=== PATIENT | female | born 1955 | race Caucasian/White ===

== ENCOUNTER 2017-09-24 10:15 | Inpatient (IN) | payer MEDICARE ==
[2017-09-24] VITALS (36 sets, daily range): BP systolic 77–123; BP diastolic 34–93; BMI 20.5
[~2017-09-24] VITALS: Ht 165.1 cm; Wt 81.4 kg
[2017-09-24 11:07] LABS: BASOPHILS 0.1 % (0-2); EOSINOPHILS 0.1 % (0-7); HEMATOCRIT 41.2 % (36.0-48.0); HEMOGLOBIN 13.6 g/dL (12-16); IMMATURE GRANULOCYTES 0.6 % (0-5); LYMPHOCYTES 23.1 % (15-50); MCH 28.3 pg (26.0-34.0); MCV 85.8 fL (80.0-100.0); MONOCYTES 7.1 % (2-11); PLATELET COUNT 95 10x3/uL (130-400); RDW 15.4 % (11.5-14.5); WBC 12.2 10x3/uL (4.8-10.8)
[2017-09-24 11:19] LABS: APPEARANCE CLOUDY (CLEAR); BILIRUBIN NEGATIVE (NEGATIVE); COLOR DK YELLOW (YELLOW); GLUCOSE NEGATIVE (NEGATIVE); KETONE NEGATIVE (NEGATIVE); NITRITE NEGATIVE (NEGATIVE); PROTEIN NEGATIVE (NEGATIVE)
[2017-09-24 11:22] LABS: INR 1.94 (0.85-1.17); PROTIME 22.2 SECONDS (11.6-15.0)
[2017-09-24 11:22] LABS: BACTERIA MANY /hpf (NONE SEEN); MUCUS <1+ /lpf (NONE SEEN); RED CELLS - URINE 0-5 /hpf (0-5)
[2017-09-24 11:25] LABS: PLATELET ESTIMATE DECREASED
[2017-09-24 11:27] LABS: UDS - AMPHET NEGATIVE QUAL (NEGATIVE); UDS - BARB NEGATIVE QUAL (NEGATIVE); UDS - BENZO NEGATIVE QUAL (NEGATIVE); UDS - COCAINE NEGATIVE QUAL (NEGATIVE); UDS - OPIATE NEGATIVE QUAL (NEGATIVE); UDS - PCP NEGATIVE QUAL (NEGATIVE); UDS - THC NEGATIVE QUAL (NEGATIVE)
[2017-09-24 11:52] LABS: ALBUMIN 2.4 g/dL (3.4-5.0); ANION GAP 19.8 mmol/L (8-16); CALCIUM 7.8 mg/dL (8.5-10.1); CARBON DIOXIDE 19.8 mmol/L (21.0-32.0); CREATININE - SERUM 1.8 mg/dL (0.6-1.3); POTASSIUM - SERUM 4.6 mmol/L (3.5-5.1); PROTEIN - SERUM 6.5 g/dL (6.4-8.2)
[2017-09-24 12:13] LABS: DIGOXIN 0.15 ng/mL (0.90-2.00)
[2017-09-24 12:21] LABS: TROPONIN-I 0.212 ng/mL (0.000-0.060)
--- NOTE | 2017-09-24 14:45 | NUR ---
REC'D PT VIA STRETCHER FROM OR, PT UNABLE TO ANSWER QUESTIONS OR PROVIDE HISTORY ON PT. NO BELONGINGS WITH PT, MARIYA GORMAN FROM ER REPORTS THAT PTS BELONGINGS WERE SENT HOME WITH PTS . CAMILO CATHETER INTACT, URINE RETURN.
[2017-09-24 16:23] LABS: AMYLASE - SERUM 11 U/L (25-115); LIPASE 69 U/L (73-393)
--- NOTE | 2017-09-24 17:02 | NUR ---
1500 COMP[LETE assesment is done see flow sheet for findings.. pt buttocks and perineal area are totally excoriated and there is a skin tear area on the right buttock .. meplex dressing applied at this time.. and there is excoriation with blackened eschar like areas on backside of right thigh.. pt is not responsive to stimuli at this time she moans but not to specific stimuli.. there is a piv in bilateral hands and ns with levoquin infusing into the right with levophed infusing into the left for bp.. piv on right appears to be infiltrated and dani FABIAN CALLED FOR LINE PLACEMENT.. ALL FLUID MOVED TO LEFT FOR NOW.. PAT ON MONITOR RATE OF 200+ TEMP IS 95 PER RECTUM.. JARRED DAVISER PLACED ON PT FOR TEMP CONTROL... 1515 DR WALKER IN TO SEE PT AND DR GARCIA CALLED RE HR.. ORDERS FOR DIG IVP RECIEVED... 1520 DANI FABIAN IN ROOM AND ATTEMPTING TO PLACE PICC.. DIG GIVEN INTO LEFT PIV 0.[address] FROST IN TO SEE PT AND UPDATE IS GIVEN.. DANI UNABLE TO PLACE PICC .. SHE PLACE BILATERAL PIV 20 GA IN THE PTS UPPER ARMS.. [address] FROST D5NS AT 125CC/HR
--- NOTE | 2017-09-24 17:46 | NUR ---
1715 HEART RATE REMAINS UNCHANGED DIG .[address] GARCIA.. 1745 DIG GIVEN PT REMAINS WITHOUT CHANGES.. TEMP IS ELEVATED AT THIS TIME TO 99 RECTALLY WARMER TURNED OFF AT THIS TIIME.. REMAINS WITHOUT APPROPRIATE RESPONSES,,,
--- NOTE | 2017-09-24 19:15 | NUR ---
REPORT RECIEVED, SHIFT ASSESSMENT COMPLETE, PT IS LETHARGIC AT THIS TIME, GARBLED SPEECH NOTED, ON 2L NC WITH 95% O2 SAT. LUNGS CLEAR IN B/L UPPER LOBES, DIMINISHED IN B/L LOWER LOBES, HR-IRREGULAR, AFIB ON MONITOR, PATENT LEFT HAND PIV, PATENT LEFT UPPER ARM PIC AND PATENT RIGHT A/C PIV...SEE IV FLOW SHEET, ABDOMEN IS SOFT AND ROUND WITH HYPO BS, PATENT F/C WITH AUGUST UOP, ALL PPP, VSS, WILL CON'T TO MONITOR
--- NOTE | 2017-09-24 20:30 | NUR ---
L UPPER ARM PIV INFULTRATED. D.C'D CATH INTACT. IV RESTART BY TOM GORMAN X1 APPTEMPT FLUSHES WITHOUT DIFFICULTY. VSS WILL CONTINUE TO MONITOR
--- NOTE | 2017-09-24 21:14 | NUR ---
NO FAMILY AT THIS TIME. HR 121 UNCONTROLLED A FIB NO FURTHER NEW CHANGES. WILL CONTINUE TO MONITOR
--- NOTE | 2017-09-24 22:34 | NUR ---
UPDATE CALLED TO DR. HUTSON, NO NEW ORDERS AT THIS TIME,
--- NOTE | 2017-09-24 23:00 | NUR ---
REASSESSMENT COMPLETE, NO CHANGES NOTED, PT RESTING AT THIS TIME, WILL CON'T TO MONITOR
[2017-09-25] VITALS (73 sets, daily range): BP systolic 60–127; BP diastolic 37–98; Ht 165.1 cm; Wt 81.4 kg
--- NOTE | 2017-09-25 01:30 | NUR ---
COMPLETE BATH AND LINEN CHANGE, PT TOLERATED WELL
--- NOTE | 2017-09-25 03:10 | NUR ---
LAB IN ROOM FOR MORNING LAB DRAW
[2017-09-25 04:48] LABS: BASOPHILS 0.1 % (0-2); EOSINOPHILS 0.2 % (0-7); HEMATOCRIT 39.2 % (36.0-48.0); HEMOGLOBIN 12.6 g/dL (12-16); IMMATURE GRANULOCYTES 0.7 % (0-5); MCH 28.3 pg (26.0-34.0); MCHC 32.1 g/dL (31.0-37.0); MONOCYTES 7.4 % (2-11); NEUTROPHILS 74.6 % (40-80); PLATELET COUNT 87 10x3/uL (130-400); RBC 4.46 10x6/uL (4.00-5.40); RDW 15.8 % (11.5-14.5); WBC 9.7 10x3/uL (4.8-10.8)
[2017-09-25 04:56] LABS: MCV 87.9 fL (80.0-100.0)
[2017-09-25 05:00] LABS: INR 1.91 (0.85-1.17); PROTIME 21.9 SECONDS (11.6-15.0)
--- NOTE | 2017-09-25 05:00 | NUR ---
REPOSITIONED FOR COMFORT, NO VISITORS AT THIS TIME
[2017-09-25 07:14] LABS: ALBUMIN 2.2 g/dL (3.4-5.0); BILIRUBIN - TOTAL 2.46 mg/dL (0.2-1.3); CALCIUM 7.9 mg/dL (8.5-10.1); CARBON DIOXIDE 17.5 mmol/L (21.0-32.0); PROTEIN - SERUM 6.1 g/dL (6.4-8.2); T4 THYROXIN - FREE 1.14 ng/dL (0.76-1.46); THYROID STIMULATING HORMONE 4.19 uIU/mL (0.36-3.74); VANCOMYCIN - RANDOM 15.1 ug/mL (10.0-20.0)
[2017-09-25 07:15] LABS: CREATININE - SERUM 1.3 mg/dL (0.6-1.3); POTASSIUM - SERUM 3.5 mmol/L (3.5-5.1)
--- NOTE | 2017-09-25 08:54 | NUR ---
AM MEDS GIVEN WITH NO COMPLICATIONS. WAINTING ON PHARMACY TO BRING ANOTHER BAG OF VIBRAMYCIN. 1ST BAG WOUND NOT MIX PROPERLY AND STARTED LEAKING. PT RESTING COMFORTABLY.
--- NOTE | 2017-09-25 10:34 | NUR ---
SPOKE WITH DR. MANDEL ABOUT CONTINUING LEVOPHED. HE SAID TO [place] IT DOWN AND DISCONTINUE. CURRENTLY AT 2MCG/MIN. SBP 112. WILL CONTINUE TO MONITOR.
--- NOTE | 2017-09-25 11:21 | NUR ---
Patient lethargic. No family present. Rec'd call from Belen with Adult Protective Services ([phone]). Belen reports she has been following patient for quite some time and has attempted to obtain custody several times but was unsuccessful. She reports patient lives with [facility], her significant other of 12-15 years. She states she has spoke to [facility] since patient was hospitalized and he is agreeable to alf placement at discharge at this moment, unsure if patient will agree. CM will follow & assist as needed.
--- NOTE | 2017-09-25 12:34 | NUR ---
DIGOXIN 0.5ML GIVEN PER ORDERS. HR 130. PT TOLERATED WELL. WILL CONTINUE TO MONITOR.
--- NOTE | 2017-09-25 13:04 | NUR ---
LEVOPHED DISCONTINUED. BP IN THE 100S. WILL CONTINUE TO MONITOR.
--- NOTE | 2017-09-25 19:30 | NUR ---
REPORT RECIEVED, SHIFT ASSESSMENT COMPLETE, PT IS LETHARGIC/CONFUSED AT THIS TIME, ON 4L NC WITH 99% O2 SAT. CRACKLES HEARD IN B/L UPPER LOBES, DIMINISHED IN B/L LOWER LOBES, HR-IRREGULAR, AFIB ON MONITOR, PATENT RIGHT/LEFT HAND PIV...SEE IV FLOW SHEET..ABDOMEN IS FLAT WITH HYPO BS, PATENT F/C WITH CONCENTRATED UOP, EDEMA NOTED IN ALL EXTREMETIES, ALL PPP, VSS, WILL CON'T TO MONITOR
--- NOTE | 2017-09-25 23:15 | NUR ---
REASSESSMENT COMPLETE, NO CHANGES NOTED, PT RESTING COMFORTABLY, VSS, CALL LIGHT IN REACH
[2017-09-26] VITALS (14 sets, daily range): BP systolic 85–164; BP diastolic 38–80
--- NOTE | 2017-09-26 03:25 | NUR ---
RAD IN ROOM FOR DAILY CXR
[2017-09-26 04:24] LABS: BASOPHILS 0 % (0-2); EOSINOPHILS 0.4 % (0-7); HEMATOCRIT 36.9 % (36.0-48.0); HEMOGLOBIN 11.6 g/dL (12-16); IMMATURE GRANULOCYTES 0.4 % (0-5); LYMPHOCYTES 18.8 % (15-50); MCHC 31.4 g/dL (31.0-37.0); MCV 88.9 fL (80.0-100.0); MEAN PLATELET VOLUME 11.7 fL (7.4-10.4); MONOCYTES 11.6 % (2-11); NEUTROPHILS 68.8 % (40-80); PLATELET COUNT 79 10x3/uL (130-400); RBC 4.15 10x6/uL (4.00-5.40); RDW 15.8 % (11.5-14.5); WBC 7.3 10x3/uL (4.8-10.8)
[2017-09-26 04:35] LABS: PROTIME 17.8 SECONDS (11.6-15.0)
[2017-09-26 04:39] LABS: INR 1.48 (0.85-1.17)
[2017-09-26 05:37] LABS: BILIRUBIN - TOTAL 1.9 mg/dL (0.2-1.3); CALCIUM 7.9 mg/dL (8.5-10.1); CREATININE - SERUM 1.2 mg/dL (0.6-1.3); MAGNESIUM - SERUM 2.1 mg/dL (1.8-2.4); PHOSPHOROUS 1.7 mg/dL (2.5-4.9); PROTEIN - SERUM 5.3 g/dL (6.4-8.2)
[2017-09-26 05:39] LABS: CARBON DIOXIDE 26.8 mmol/L (21.0-32.0)
[2017-09-26 05:40] LABS: POTASSIUM - SERUM 2.8 mmol/L (3.5-5.1); TROPONIN-I 0.692 ng/mL (0.000-0.060)
--- NOTE | 2017-09-26 07:40 | NUR ---
PT AWAKE AND ASKING FOR WATER. PT HAS POTASIUM INFUSING ON PIV ON RIGHT BREAST. SHE'S CONFUSED TO SITUATION. HAS SWOLLOW EVAL SCHEDULED. BS SOUNDS ARE ACTIVE X 4 QUADRANTS. ABDOMEN IS SOFT AND NONTENDER. HR IN UNCONTROLLED A-FIB 130S. PUPILS 3MM EQUAL ROUND AND REACTIVE. SHIFT ASSESSMENT COMPLETED. PIV ON RIGHT AND LEFT HAND. GENERALIZED SWELLING ON ARMS AND LEGS. CAMILO IN PLACE WITH AUGUST URINE. REPOSITIONED ON RIGHT SIDE. NO OTHER NEEDS AT THIS TIME. BED LOW, CALL LIGHT IN REACH, BED ALARM ON.
--- NOTE | 2017-09-26 09:03 | NUR ---
NOTIFIED TAUTH OF BP BEING IN 80S AND HR IN UNCONTROLLED A-FIB. ORDER ONE TIME DOSE OF DIGOXIN 0.5 MG IV. PATIENT'S IN ROOM. EXPLAINED THAT PT IS NPO UNTIL SWALLOW EVAL IS PERFORMED.
--- NOTE | 2017-09-26 10:33 | NUR ---
SWALLOW EVAL BEING PERFORMED AT THIS TIME. PT PULLED UP IN BED.
--- NOTE | 2017-09-26 10:50 | NUR ---
HOB RAISED UP TO 60 DEGREES. PT DRINKING WATER. ABLE TO HAVE THIN LIQUIDS PER SPEECH THERAPY.
--- NOTE | 2017-09-26 11:13 | NUR ---
PT DRANK TO MUCH WATER TOO FAST. VOMITED. POSSIBLY ASPIRATED SOME FLUIDS. PT HAS POOR COUGH. SITTING UP AT THIS TIME AT 80 DEGREES. COMPLETE BED LINEN CHANGE PROVIDE.
--- NOTE | 2017-09-26 11:30 | NUR ---
D5 1/2 NS WITH BICARB DISCONTINUED. D5W INITATED AT 125ML/HR. PT SITTING UP IN BED. HAS TRANSFER ORDERS.
--- NOTE | 2017-09-26 11:41 | NUR ---
PT WILL BE TRANSFERRED TO ROOM 2117. REPORT CALLED TO NURSE.
--- NOTE | 2017-09-26 12:16 | NUR ---
PATIENT TRANSFERRED TO ROOM 2117 BY BED. STAFF NOTIFIED OF PT ARRIVAL.
--- NOTE | 2017-09-26 12:22 | NUR ---
RECEIVED PT FROM ICU IN STABLE CONDITION DROWSY ORIENTED X [address] RESP UNLABORED TELEMETRY APPLIED CAF RATE 74 NAD NOTED
--- NOTE | 2017-09-26 14:00 | NUR ---
OPEN AREA 3.5 X 8 CM TO RT BUTTOCK WOUND BED RED WITH DARK EDGES BUTTOCKS EXSCORIATED INCONTINENT CARE PROVIDED FOR BOWEL INCONTINENCE BUTT PAST APPLIED PT TOLERATED WELL
--- NOTE | 2017-09-26 22:58 | NUR ---
NURSE ROUNDS 20:00 - PT LYING IN BED, AWAKE, ALERT, MILDLY CONFUSED TO PLACE, TIME, AND SITUATION. PT DENIES ANY NEEDS. CONTINUE TO MONITOR CLOSELY.
[2017-09-27 00:50] VITALS: BP 92/47
[2017-09-27 05:12] VITALS: BP 80/51
--- NOTE | 2017-09-27 05:32 | NUR ---
PT AWAKE, ALERT, DENIES ANY NEEDS. 1ST STEP OVERLAY PLACED EARLY IN THE SHIFT. CONTINUE TO MONITOR CLOSELY. BED LOW, CALL LIGHT IN REACH, SIDE RAILS X 2, HOB 30 DEGREES.
[2017-09-27 06:08] LABS: CALCIUM 7.6 mg/dL (8.5-10.1); CHLORIDE - SERUM 106 mmol/L (98-107); MAGNESIUM - SERUM 1.7 mg/dL (1.8-2.4); POTASSIUM - SERUM 3.7 mmol/L (3.5-5.1); SODIUM 142 mmol/L (136-145)
[2017-09-27 06:10] LABS: CALC OSMOLALITY 283 mosm/kg (275-300); CREATININE - SERUM 0.6 mg/dL (0.6-1.3); GLUCOSE 66 mg/dL (74-106); UREA NITROGEN 21 mg/dL (7-18); eGFR NON AFRICAN AMERICAN > 90 mL/min (90-120)
[2017-09-27 06:39] LABS: BASOPHILS 0.1 % (0-2); EOSINOPHILS 2.5 % (0-7); HEMOGLOBIN 12.7 g/dL (12-16); IMMATURE GRANULOCYTES 0.5 % (0-5); LYMPHOCYTES 26.3 % (15-50); MCH 27.6 pg (26.0-34.0); MCV 89.1 fL (80.0-100.0); NEUTROPHILS 60.6 % (40-80); PLATELET COUNT 73 10x3/uL (130-400)
[2017-09-27 06:44] LABS: WBC 9.4 10x3/uL (4.8-10.8)
[2017-09-27 08:00] VITALS: BP 72/46
[2017-09-27] MEDS ORDERED: LANOXIN125 MCG PO (10:43)
[2017-09-27] MEDS ORDERED: ALDACTONE50 MG PO (10:43)
[2017-09-27 11:48] VITALS: BP 92/44
[2017-09-27] MEDS ORDERED: TRINTELLIX20 MG PO (12:50)
[2017-09-27] MEDS ORDERED: TRILEPTAL600 MG PO (12:54)
[2017-09-27] MEDS ORDERED: OXYBUTYNIN CHLOR5 MG PO (12:55)
[2017-09-27] MEDS ORDERED: COREG25 MG PO (12:56)
--- NOTE | 2017-09-27 20:03 | NUR ---
PT LYING IN BED, AWAKE, ALERT, JUST COMPLETED AN UPDRAFT TX. PT DENIES ANY NEEDS AT THIS TIME. WILL CONTINUE TO MONITOR CLOSELY AND FREQUENTLY. BED LOW, CALL LIGHT IN REACH, SIDE RAILS X 2, HOB 35 DEGREES.
[2017-09-27 21:40] VITALS: BP 102/43
[2017-09-28] VITALS: BP 100/47
--- NOTE | 2017-09-28 00:41 | NUR ---
PT LYING IN BED, AWAKE, ALERT, BED BATH GIVEN, LINENS CHANGED, GOWN CHANGED R/T BOWEL INCONTINENCE. PT DENIES ANY NEEDS AT THIS TIME. CONTINUE TO MONITOR PT CLOSELY. BED LOW, CALL LIGHT IN REACH, SIDE RAILS X 2, HOB 30 DEGREES, 1ST STEP OVERLAY INFLATED.
[2017-09-28 04:16] VITALS: BP 92/44
[2017-09-28 05:15] LABS: BASOPHILS 0 % (0-2); EOSINOPHILS 2.1 % (0-7); HEMATOCRIT 39.3 % (36.0-48.0); HEMOGLOBIN 12.4 g/dL (12-16); IMMATURE GRANULOCYTES 0.3 % (0-5); MCH 27.7 pg (26.0-34.0); MCHC 31.6 g/dL (31.0-37.0); MCV 87.7 fL (80.0-100.0); MEAN PLATELET VOLUME 11.7 fL (7.4-10.4); MONOCYTES 8.3 % (2-11); NEUTROPHILS 67.3 % (40-80); RBC 4.48 10x6/uL (4.00-5.40); RDW 15.9 % (11.5-14.5); WBC 9.5 10x3/uL (4.8-10.8)
[2017-09-28 05:20] LABS: PLATELET COUNT 102 10x3/uL (130-400)
[2017-09-28 05:52] LABS: CALC OSMOLALITY 282 mosm/kg (275-300); CALCIUM 7.9 mg/dL (8.5-10.1); CARBON DIOXIDE 27.8 mmol/L (21.0-32.0); CHLORIDE - SERUM 106 mmol/L (98-107); GLUCOSE 83 mg/dL (74-106); MAGNESIUM - SERUM 1.7 mg/dL (1.8-2.4); POTASSIUM - SERUM 3.3 mmol/L (3.5-5.1); SODIUM 141 mmol/L (136-145); UREA NITROGEN 20 mg/dL (7-18); eGFR NON AFRICAN AMERICAN 77 mL/min (90-120)
[2017-09-28 05:53] LABS: CREATININE - SERUM 0.8 mg/dL (0.6-1.3)
--- NOTE | 2017-09-28 07:51 | NUR ---
AM ROUNDS COMPLETED. INTRODUCED MYSELF TO PT PRIMARY RN FOR TODAYS SHIFT. SHIFT ASSESSMENT COMPLETED. PT RESTING QUIETLY IN BED AND DENIES ANY CURRENT NEEDS. CL IN REACH, BED IN LOWEST, SIDE RAILS X2 AND WILL CPOC.
[2017-09-28 08:00] VITALS: BP 93/45
--- NOTE | 2017-09-28 08:00 | NUR ---
D/C PTS L.HAND PIV WITH CATH TIP FULLY INTACT IT IS INFILTRATED.
--- NOTE | 2017-09-28 10:00 | NUR ---
BOTH MAG AND POTASSIUM REPLACED PER ELECTROLYTE PROTOCOL. WILL CONTINUE TO FOLLOW LABS.
--- NOTE | 2017-09-28 11:27 | NUR ---
PT SITTING UP IN BED WITH SPOUSE AT BEDSIDE. APPARENTLY PT HAS BEEN CONFUSED AND LETHARGIC HOWEVER SHES BEEN WITH IT ALL DAY FOR ME AND ANSWERED ALL QUESTIONS PT STATES SHE NORMALLY IS WALKING AT HOME FINE, SO PHYSICAL THERAPY HAS BEEN ORDERED AND PT IS EAGER TO GET MOVING. NO FURTHER NEEDS AT THIS TIME. WILL CPOC.
[2017-09-28 12:00] VITALS: BP 91/44
--- NOTE | 2017-09-28 13:43 | NUR ---
INITIATED PTS IVPB INFUSING VIA R.HAND PIV WITH DRSG CDI AND SWAB CAPS IN USE THIS ANBX IS THE EXTENDED INTERVAL AND WILL BE INFUSED OVER 4 HOURS. PT SITTING UP IN BED WITH AT BEDSIDE. DENIES ANY CURRENT PAIN OR NEEDS. CL IN REACH, BED IN LOWEST, SIDE RAILS X2. WILL CPOC.
[2017-09-28 16:00] VITALS: BP 87/36
--- NOTE | 2017-09-28 17:05 | NUR ---
BRICK UNLOADER TENDER REPORTED PTS BP LOW IN THE 80S. I MANUALLY RECHECKED AND GOT 92/58 WILL DOCUMENT AND JUST CONTINUE TO MONITER. PT ASYMPTOMATIC AND SITTING UP IN BED RESTING ABOUT TO EAT DINNER. PT DENIES ANY CURRENT PAIN OR FURTHER NEEDS. CL IN REACH. WILL CPOC.
--- NOTE | 2017-09-28 19:00 | NUR ---
RECEIVED REPORT AND ASSUMED PT CARE FROM DAY SHIFT NURSE @ THIS TIME.
--- NOTE | 2017-09-28 20:31 | NUR ---
PT SITTING UP IN BED, 1ST STEP OVERLAY ON BED. INITIAL ASSESSMENT COMPLETED, VSS, AFEBRILE. RIGHT CHEST PERIPHERAL IV WITH NS @ KVO. SITE IS PATENT AND CDI. CAMILO TO BSD, DRAINS ADEQ AMOUNT AUGUST URINE. IN REPORT WAS TOLD PT IS CONFUSED. HOWEVER, ON THIS ASSESSMENT PT IS A/O X4. DENIES ANY C/O PAIN. CAF ON TELE, HR 70'S. NO OTHER NEEDS VOICED. CALL LIGHT WITHIN REACH. WILL CONT TO MONITOR.
[2017-09-28 21:15] VITALS: BP 100/42
--- NOTE | 2017-09-29 | NUR ---
PT RESTING WELL, NO CHANGES NOTED. ASSESSMENTS UNCHANGED. CALL LIGHT WITHIN REACH. WILL MONITOR.
[2017-09-29 00:50] VITALS: BP 104/50
[2017-09-29 05:16] VITALS: BP 102/65
[2017-09-29 05:22] LABS: BASOPHILS 0 % (0-2); EOSINOPHILS 2.4 % (0-7); HEMATOCRIT 37.6 % (36.0-48.0); IMMATURE GRANULOCYTES 0.7 % (0-5); LYMPHOCYTES 29.8 % (15-50); MCH 27.8 pg (26.0-34.0); MCHC 31.9 g/dL (31.0-37.0); MEAN PLATELET VOLUME 11.7 fL (7.4-10.4); MONOCYTES 10.2 % (2-11); NEUTROPHILS 56.9 % (40-80); PLATELET COUNT 106 10x3/uL (130-400); RBC 4.32 10x6/uL (4.00-5.40); RDW 16.1 % (11.5-14.5); WBC 8.9 10x3/uL (4.8-10.8)
[2017-09-29 05:38] LABS: CALC OSMOLALITY 277 mosm/kg (275-300); CALCIUM 7.8 mg/dL (8.5-10.1); CARBON DIOXIDE 26.4 mmol/L (21.0-32.0); CHLORIDE - SERUM 106 mmol/L (98-107); CREATININE - SERUM 0.7 mg/dL (0.6-1.3); GLUCOSE 102 mg/dL (74-106); MAGNESIUM - SERUM 1.7 mg/dL (1.8-2.4); POTASSIUM - SERUM 3.5 mmol/L (3.5-5.1); SODIUM 139 mmol/L (136-145); eGFR NON AFRICAN AMERICAN 90 mL/min (90-120)
[2017-09-29 05:43] LABS: UREA NITROGEN 13 mg/dL (7-18)
--- NOTE | 2017-09-29 07:32 | NUR ---
AM ROUNDS COMPLETED. INTRODUCED MYSELF TO PT PRIMARY RN FOR TODAYS SHIFT. PT REMEMBERS ME FROM YESTERDAY. PT STATES THEY SLEPT ALRIGHT AND DENIES ANY CURRENT PAIN OR NEEDS. WILL CHECK CHART AND CPOC.
[2017-09-29 08:50] VITALS: BP 109/49
--- NOTE | 2017-09-29 10:35 | NUR ---
THERAPY ASSISTED PT INTO HER BEDSIDE CHAIR. PT STATES SHE FEELS GOOD SITTING UP IN THE CHAIR. ELEVATED HER ARMS ON PILLOWS TO REDUCE SWELLING ALONG WITH HER FEET. BILAT LEGS DRY-APPLIED LOTION. PTS L.EYE IS VERY RED BUT SHE DENIES PAIN OR IRRITATION AND STATES THAT WHEN SHE REC'D HER BREATHING TX IT BLEW IN HER EYE, WILL DISCUSS WITH PRIMARY AND MAKE SURE THEY ARE AWARE AND CTM IT. PT DENIES ANY CURRENT PAIN OR NEEDS AT THIS TIME. CL IN REACH, WILL CPOC.
--- NOTE | 2017-09-29 12:19 | NUR ---
PT WANTING TO GET BACK INTO BED. LINEN CHANGE PROVIDED AND PT ASSISTED BACK INTO BED. PT SITTING UP AND IS READY TO EAT LUNCH. NO FURTHER NEEDS AT THIS TIME. WILL CPOC.
[2017-09-29 12:20] VITALS: BP 109/60
--- NOTE | 2017-09-29 14:30 | NUR ---
MAGNESIUM REPLACED PER ELECTROLYTE PROTOCOL. PT SITTING UP IN BED RESTING QUIETLY AND DENIES ANY CURRENT PAIN OR NEEDS. REMOVED OXYGEN I KEEP FINDING IT IN PTS L.EYE AND POKING IT IRRITATING IT. PTS PULSE OX ON RA IS 99% WILL CTM FOR NEED ON OXYGEN OR NOT.
[2017-09-29 16:39] VITALS: BP 110/47
[2017-09-29 20:00] VITALS: BP 102/42
[2017-09-30] VITALS: BP 90/57
[2017-09-30 04:00] VITALS: BP 95/44
[2017-09-30 06:52] LABS: CALC OSMOLALITY 285 mosm/kg (275-300); CALCIUM 8.1 mg/dL (8.5-10.1); CARBON DIOXIDE 26.1 mmol/L (21.0-32.0); CHLORIDE - SERUM 108 mmol/L (98-107); CREATININE - SERUM 0.7 mg/dL (0.6-1.3); GLUCOSE 93 mg/dL (74-106); MAGNESIUM - SERUM 1.9 mg/dL (1.8-2.4); POTASSIUM - SERUM 3.5 mmol/L (3.5-5.1); SODIUM 144 mmol/L (136-145); UREA NITROGEN 10 mg/dL (7-18); eGFR NON AFRICAN AMERICAN 90 mL/min (90-120)
[2017-09-30 07:09] LABS: BASOPHILS 0.1 % (0-2); EOSINOPHILS 2.3 % (0-7); HEMATOCRIT 40.6 % (36.0-48.0); HEMOGLOBIN 12.8 g/dL (12-16); IMMATURE GRANULOCYTES 0.3 % (0-5); LYMPHOCYTES 18.9 % (15-50); MCH 27.8 pg (26.0-34.0); MCHC 31.5 g/dL (31.0-37.0); MCV 88.3 fL (80.0-100.0); MEAN PLATELET VOLUME 11.7 fL (7.4-10.4); MONOCYTES 9.6 % (2-11); NEUTROPHILS 68.8 % (40-80); PLATELET COUNT 119 10x3/uL (130-400); RDW 16.5 % (11.5-14.5)
[2017-09-30 07:15] LABS: WBC 12.8 10x3/uL (4.8-10.8)
--- NOTE | 2017-09-30 07:30 | NUR ---
RECEIVED PT IN BED EYES CLOSED RESP UNLABORED NAD NOTED
[2017-09-30 08:27] VITALS: BP 97/38
--- NOTE | 2017-09-30 09:02 | EC ---
PATIENT:BRAULIO YOU DATE OF SERVICE: 09/24/17 SEX: F MEDICAL RECORD: [id number] DATE OF : 55 LOCATION:D. D.211 AGE OF PATIENT: 61 ADMISSION DATE: 09/24/17 REFERRING PHYSICIAN: INTERPRETING PHYSICIAN: RAYMOND MILLS MD ECHOCARDIOGRAM REPORT ECHO CHARGES CLINICAL DIAGNOSIS: ECHOCARDIOGRAPHIC MEASUREMENTS (adult normal given) AC root (d.<3.7cm) cm LV Septum d (<1.2 cm> cm Valve Excursion cm LV Septum (systole) cm Left Atria (s.<4.0cm> cm LVPW d(<1.2cm) cm RV (d.<2.3cm) cm LVPW (sytole) cm LV diastole(<5.6CM) cm MV E-F(>70mm/sec) cm LV systole cm LVOT Diameter cm MV exc.(>10mm) cm Est.ejection fraction (50-75%) % Pericardial Effusion DOPPLER: LVIT cm/sec A cm/sec E cm/sec LA cm/sec RVSP mmHg LVOT cm/sec AOP1/2T m/s Asc. Ao cm/sec RVOT cm/sec RA cm/sec PA cm/sec AV Gradient Peak mmHg AV Mean mmHg AV Area cm MV Gradient Peak mmHg MV Mean mmHg MV Area cm COMMENTS: Mold Holder: Quality Auditor: JAIME DATE OF SERVICE: 09/25/2017 PROCEDURE: Echocardiogram. FINDINGS: 1. Left ventricular chamber size is mildly dilated. Left ventricular systolic function is moderately reduced, overall ejection fraction estimated at 30%. 2. Left atrium, right atrium, and right ventricle chamber sizes are dilated. Left atrium measures 5.7 cm. 3. Valvular structures: Mitral valve was replaced with a prosthetic valve that ECHOCARDIOGRAM REPORT [id number] BRAULIO YOU has normal structure and function in this position. The remaining valvular structures have normal structure and motion. 4. Doppler interrogation reveals moderate aortic insufficiency, moderate to severe tricuspid regurgitation, no other valvular insufficiency or stenosis; however, pulmonary systolic pressure is markedly elevated, estimated at 84 mmHg. 5. No evidence of pericardial effusion or left ventricular thrombus. TRANSINT:[id number] Voice Confirmation ID: [id number] DOCUMENT ID: [id number] RAYMOND MILLS MD at 0902 CC: [id number] DICTATION DATE: 09/25/17 1205 TRUCK DRIVING: 09/25/17 1214 ADM IN [place] [id number] [place] [address]
--- NOTE | 2017-09-30 10:32 | NUR ---
Rehab Prescreening Consult recieved and the chart has been reviewed. According to the PT notes she is only able to lift her hands and is total assist for all mobility and ADL's. She is to low level at this time to be able to participate in the required 3 hrs of therapy daily 5 times a week. Thank You for the referral Demetria Osei RN Clinical Liaison, Rehab
[2017-09-30 11:57] VITALS: BP 109/54
--- NOTE | 2017-09-30 13:17 | NUR ---
Nutrition follow-up: Diet: regular mechanical soft with thin liquids PO intake ~50% average of last 9 meals Labs reviewed Wt: 149# +BM PO intake is fair to good at meals. RDN following.
[2017-09-30 20:00] VITALS: BP 97/47
[2017-10-01 00:55] VITALS: BP 95/46
[2017-10-01 05:11] LABS: BASOPHILS 0 % (0-2); EOSINOPHILS 1.9 % (0-7); HEMATOCRIT 36.9 % (36.0-48.0); HEMOGLOBIN 11.7 g/dL (12-16); IMMATURE GRANULOCYTES 0.3 % (0-5); LYMPHOCYTES 25.1 % (15-50); MCH 27.7 pg (26.0-34.0); MCHC 31.7 g/dL (31.0-37.0); MCV 87.2 fL (80.0-100.0); MEAN PLATELET VOLUME 12.2 fL (7.4-10.4); MONOCYTES 10.7 % (2-11); PLATELET COUNT 138 10x3/uL (130-400); RBC 4.23 10x6/uL (4.00-5.40); RDW 16.9 % (11.5-14.5)
[2017-10-01 05:20] LABS: WBC 8.8 10x3/uL (4.8-10.8)
[2017-10-01 05:24] LABS: CALC OSMOLALITY 276 mosm/kg (275-300); CALCIUM 7.9 mg/dL (8.5-10.1); CARBON DIOXIDE 24.4 mmol/L (21.0-32.0); CHLORIDE - SERUM 106 mmol/L (98-107); CREATININE - SERUM 0.7 mg/dL (0.6-1.3); GLUCOSE 101 mg/dL (74-106); MAGNESIUM - SERUM 1.7 mg/dL (1.8-2.4); POTASSIUM - SERUM 3.7 mmol/L (3.5-5.1); SODIUM 139 mmol/L (136-145); UREA NITROGEN 11 mg/dL (7-18); eGFR NON AFRICAN AMERICAN 90 mL/min (90-120)
[2017-10-01 05:35] VITALS: BP 84/51
[2017-10-01 08:00] VITALS: BP 98/52
[2017-10-01 12:00] VITALS: BP 94/50
--- NOTE | 2017-10-01 12:22 | NUR ---
Wound care consult: Right buttock (coccyx) has 6cm x 3cm unstageable pressure injury. The center is black escar. The edges have loosened and are red. Periwound is normal. Left and right upper thighs are excoriated d/t frequent episodes of diarrhea (pt is incontinent of bowels). Calmoseptine in use. She has a f/c in place. She is on an air overlay mattress. Will recommend santyl ointment for wound on right buttock Wound care will continue monitoring.
[2017-10-01 16:00] VITALS: BP 98/46
--- NOTE | 2017-10-01 16:46 | NUR ---
Patient Name: BRAULIO YOU Encounter No: [id number] : 1955 Primary Insurance: MEDICARE A & B Anticipated DC Date: 10-02-2017 Planned Disposition: Fpc Facility External Planned Provider: [facility], MEDICARE REHAB BED DCP follow-up note: * Is the patient Alert and Oriented? Yes 0 * How many steps to enter\exit or inside your home? NONE 0 * PCP DR. ESCALANTE 0 * Pharmacy [facility] 0 * Preadmission Environment Home with Family 0 * ADLs Independent 0 * Equipment [facility] 0 * Other Equipment [facility] - MEDICAL EQUIPMENT PROVIDER PREFERENCE 0 * List name and contact numbers for known caregivers / representatives who currently or will assist patient after discharge: MAYTE CISNEROS, ELIUDIEND, 0 * Community resources currently utilized [employer] 0 * Please name any agencies selected above. [facility] * Additional services required to return to the preadmission environment? Yes * Can the patient safely return to the preadmission environment? Yes 0 * Has this patient been hospitalized within the prior 30 days at any hospital? No 0 CM MET WITH PT IN ROOM TO DISCUSS DISCHARGE PLANNING AND NEEDS, DISCUSSED AVAILABILITY OF HOME HEALTH, AND REHAB SERVICES; CM EXPLAINED THAT SHE IS NOT ELIGIBLE FOR INPATIENT REHAB AT THIS TIME SHE IS NOT ABLE TO PARTIPATE FULLY WITH THREE OR MORE HOURS OF PROGRESSIVE THERAPY PER DAY. PT WOULD LIKE REHAB BEFORE GOING HOME WITH HER BOYFRIEND. [facility] FACILITY OPTIONS DISCUSSED, PT CHOSE [facility]. CM DISCUSSED ADULT PROTECTIVE SERVICES CHECKING ON HER; PT DENIES BEING ABUSED, NEGLECTED OR MISTREATED AT HOME. PT ASKED CM TO NOTIFY HER BOYFRIEND, MAYTE CISNEROS; CM CALLED MAYTE AT [phone]; MAYTE IN AGREEMENT WITH REHAB AT [facility] AND PLANS FOR PT TO RETURN HOME WITH HIM AFTER REHAB. IMPORTANT MESSAGE FROM MEDICARE PROVIDED AND EXPLAINED. CM TO SEND REFERRAL TO [facility] FOR REHAB SCREENING SOON POSSIBLE. Larry Cruz, CASE MANAGEMENT
--- NOTE | 2017-10-01 20:40 | NUR ---
PT LYING IN BED, EYES CLOSED, RESPIRATIONS EVEN AND UNLABORED. PT IS EASILY ROUSABLE TO VERBAL STIMULI, HAS A FRIEND/FAMILY MEMBER AT BEDSIDE. PT STATES SHE IS SLEEPY, BUT DENIES ANY NEEDS. CONTINUE TO MONITOR CLOSELY. BED LOW, CALL LIGHT IN REACH, SIDE RAILS X 2, HOB 20 DEGREES.
[2017-10-01 21:38] VITALS: BP 95/46
[2017-10-02 00:37] VITALS: BP 93/53
[2017-10-02 04:53] VITALS: BP 103/56
[2017-10-02 08:17] VITALS: BP 100/61
--- NOTE | 2017-10-02 10:13 | NUR ---
TELEMETRY CAF. ASSISTED UP TO CHAIR WITH PT ASSIST. CALL LIGHT IN REACH. WILL CONT. PLAN OF CARE.
--- NOTE | 2017-10-02 11:00 | NUR ---
REFUSED VS AND DRSG CHANGE TO BUTTOCKS.
--- NOTE | 2017-10-02 11:24 | NUR ---
Patient Name: BRAULIO YOU Encounter No: [id number] : 1955 Primary Insurance: MEDICARE A & B Anticipated DC Date: 10-02-2017 Planned Disposition: Detention Facility External Planned Provider: [facility], MEDICARE REHAB BED DCP follow-up note: CM CALLED [facility], , SPOKE TO GERSON WHO REPORTS NO REHAB BEDS AVAILABLE BUT WILL HOLD REFERRAL FOR WHEN BED IS AVAILABLE. CM FAXED REFERRAL TO [facility] AT [phone]. CM COMPLETED ALECIA SCREENING WITH ASSISTANCE OF PT AND HER SIGNIFICANT OTHER, OBTAINED PT AND DOCTOR SIGNATURES. CM ADVISED PT AND SIGNIFICANT OTHER OF NO BED BEING AVAILABLE AT [facility], DISCUSSED OPTIONS, PT AND SIGNIFICANT OTHER REQUESTED REFERRAL BE SENT TO [facility]. CM CALLED [facility] AT [phone], SPOKE TO LAZARO WHO REPORTS PT WAS IN REHAB AT [facility] IN 2016 AND THEY WILL CONSIDER PT IF SHE IS WILLING. CM FAXED REFERRAL TO [facility] AT [phone]. CM FAXED REFERRAL TO [place] FOR SCREENING AT [phone]. CM CALLED [facility] OF ADULT PROTECTIVE SERVICES TO PROVIDE UPDATE ON REHAB PLACEMENT AT [phone], LEFT MESSAGE ASKING FOR RETURN CALL. CM WAITING ALECIA ASSESSMENT DETERMINATION AND ADMISSION DETERMINATION FROM [facility]. Larry Cruz, CASE MANAGEMENT
--- NOTE | 2017-10-02 20:38 | NUR ---
PT AWAKE, ALERT, LYING IN BED, REFUSING TO BE CHANGED OR CLEANED AT THIS TIME. PT IS STOIC AND FLAT AFFECT, STATES SHE IS TOO TIRED TO RECEIVE A BED BATH AT THIS TIME. WILL ENCOURAGE PT AGAIN LATER THIS SHIFT. NO NEEDS AT THIS TIME. CONTINUE TO MONITOR CLOSELY. BED LOW, CALL LIGHT IN REACH, SIDE RAILS X 2, HOB 30 DEGREES, 1ST STEP OVERLAY ON.
[2017-10-02 21:32] VITALS: BP 80/35
[2017-10-03 06:19] VITALS: BP 100/36
[2017-10-03 07:42] VITALS: BP 134/63
--- NOTE | 2017-10-03 11:48 | NUR ---
TELEMETRY CLIVE. TON INTACT. CALL LIGHT IN REACH. WILL CONT. PLAN OF CARE.
[2017-10-03 12:00] VITALS: BP 119/78
[2017-10-03] MEDS ORDERED: BETAPACE 80 MG80 MG PO (12:35)
--- NOTE | 2017-10-03 14:10 | NUR ---
IV TELEMTRY AND CAMILO DCD. COMPLETE BATH AND DRSG CHANGE TO RIGHT BUTTOCKS DONE. DC PLANS NOTED.
--- NOTE | 2017-10-03 15:20 | NUR ---
Patient Name: BRAULIO YOU Encounter No: [id number] : 1955 Primary Insurance: MEDICARE A & B Anticipated DC Date: 10-03-2017 Planned Disposition: Retirement Facility External Planned Provider: [facility], MEDICARE REHAB BED DCP follow-up note: CM RECEIVED ALECIA APPROVAL FOR GROUP HOME ENTRY. CM RECEIVED CALL FROM LAZARO AT [facility], THEY WILL ACCEPT PT TODAY FOR REHAB. CM NOTIFIED ADELSO CANTOR, RECEIVED DISCHARGE ORDERS. CM FAXED DISCHARGE INFORMATION TO [facility] AT [phone]. PT NOTIFIED, IN AGREEMENT WITH DISCHARGE TO REHAB AT [facility]. CM CALLED PT'S BOYFRIEND, , NOTIFIED OF DISCHARGE TODAY, HE WILL MEET PT AT [facility] THIS AFTERNOON. SOIL FERTILITY SPECIALIST NURSE NOTIFIED. NURSE REPORT TO BE CALLED TO [address] NURSE, . MCC VAN TO BORING MACHINE SET UP OPERATOR JIG PT BETWEEN 4PM AND 5PM. Larry Cruz, CASE MANAGEMENT
--- NOTE | 2017-10-03 16:24 | NUR ---
REPORT CALLED TO REHAB [facility].
--- NOTE | 2017-10-03 18:33 | NUR ---
ESCORTED TO [facility] BY W/CSamantha
== END 2017-10-03 18:33 | DRG 871 ==
LOC: D.ER 10:15 → D.M2 14:07 → D.ICU 14:07 → D.M2 09-26 12:12
PROVIDERS: Emergency Medicine; Internal Medicine Gastroenterology; Internal Medicine Pulmonary Disease; Student in an Organized Health Care Education/Training Program; ADMIT Family Medicine Adult Medicine
PROC: 02HV33Z Insertion of Infusion Device into Superior Vena Cava, Percutaneous Approach (ICD-10-PCS; principal; 2017-09-24)
PROC: B548ZZA Ultrasonography of Superior Vena Cava, Guidance (ICD-10-PCS; 2017-09-24)
PROC: 0T9B70Z Drainage of Bladder with Drainage Device, Via Natural or Artificial Opening (ICD-10-PCS; 2017-09-24)
DX: A41.89 Other specified sepsis (principal); R65.21 Severe sepsis with septic shock; G93.41 Metabolic encephalopathy; N39.0 Urinary tract infection, site not specified; E87.0 Hyperosmolality and hypernatremia; N17.9 Acute kidney failure, unspecified; B96.20 Unspecified Escherichia coli [E. coli] as the cause of diseases classified elsewhere; J44.9 Chronic obstructive pulmonary disease, unspecified; E86.0 Dehydration; I48.91 Unspecified atrial fibrillation; F20.9 Schizophrenia, unspecified; K75.9 Inflammatory liver disease, unspecified; G93.89 Other specified disorders of brain; I27.20 Pulmonary hypertension, unspecified; N18.9 Chronic kidney disease, unspecified; I08.3 Combined rheumatic disorders of mitral, aortic and tricuspid valves; Z86.73 Personal history of transient ischemic attack (TIA), and cerebral infarction without residual deficits; Z95.2 Presence of prosthetic heart valve